=== PATIENT | female | born 1995 | race Caucasian/White ===

== ENCOUNTER 2020-08-06 00:05 | Emergency (ER) | payer SELFPAY ==
[2020-08-06 00:21] VITALS: BP 151/98; PULSE 78; RESP 22; TEMP 36.6; O2SAT 97
--- NOTE | 2020-08-06 01:07 | ED_ITS ---
HPI - Dental/Oral General: Chief complaint: Dental/Oral Stated complaint: Jaw pain Time Seen by Provider: 08/06/20 00:49 Source: patient Mode of arrival: ambulatory Limitations: no limitations History of Present Illness: HPI Narrative: 25-year-old female patient presents to the emergency department with dental pain. She recently moved here from [place], reports not established with a primary care provider. She reports dental pain to the right lower jaw, broken wisdom tooth x3 to 4 years on and off. [facility] has not followed up with a dental provider due to insurance reas ons. Reports past 1 to 2 weeks of increased dental pain, [facility] and normally works. [facility] has not helped pain tonight. MD Complaint: tooth pain and tooth injury Location: Tooth # (17) Onset (ago): week(s) (1-2; chronic for the past several years) Duration: constant Severity: moderate Severity scale (1-10): 6 Relieving factors: other (ASA) Exacerbating factors: chewing, cold and heat Context: history of dental caries and other ( broke off wisdom tooth ) Associated symptoms: Reports ear or mastoid pain; Denies fever(s) or odynophagia Review of Systems General: Reports: 10 or more systems reviewed and unremarkable except in HPI and below Const: Denies: fever(s), chills or diaphoresis Eyes: Denies: blurry vision or eye redness ENMT: Reports: dental pain and ear or mastoid pain; Denies: throat pain, uvular edema, odynophagia, hoarseness, swelling of li ps/tongue, ear discharge, nasal discharge, nasal congestion, nasal obstruction, epistaxis or post nasal drip Card: Denies: chest pain, palpitations or irregular heart rhythm Resp: Denies: dyspnea, productive cough, non-productive cough or wheezing GI: Denies: abdominal pain, nausea or vomiting : Denies: difficulty voiding or dysuria Musc: Denies: back pain Skin/Breast: Denies: rash or pruritus Neuro: Denies: headache(s), weakness in extremities or behavioral changes Psych: Denies: anxiety or depression [place]/Lymph: Denies: easy bruising Physical Exam 2 Const: COMMON NORMALS: no acute distress, patient oriented x3, healthy appearing, alert and well nourished EXAM LIMITATIONS: no altered mental status and no physical limitations GENERAL APPEARANCE: cooperative, comfortable, well kempt, well developed and well hydrated; not anxious, not combative and not ill appearing NUTRITIONAL APPEARANCE: thin ORIENTATION/CONSCIOUSNESS: Yes oriented to person, Yes oriented to place and Yes oriented to time HENMT: COMMON NORMALS: normocephalic, atraumatic, Normal external nose present and moist oral mucous membranes HEAD & SCALP: normocephalic and atraumatic FACE & SINUS: normal facial exam and face symmetric; no sinus tenderness NOSE: Normal external nose present and Normal nares present MOUTH: Normal oral and palatal mucosa present, lip normal and tongue normal TEETH & GINGIVA IMAGES: 1. old avulsion present, gum edema with erythema, tender with palpation THROAT: posterior oropharynx normal, tonsils normal and uvula midline; no uvular edema Eye: COMMON NORMALS: Equal, round and reactive pupils present and EOMs intact bilaterally GENERAL EYE: appearance normal, both eyes and all related structures PUPIL: Yes Equal, round and reactive pupils present Neck/C-Spine: COMMON NORMALS: full ROM and no lymphadenopathy GENERAL: Yes normal visual inspection and Yes trachea midline CERVICAL SPINE: Yes cervical ROM normal Lymph: LYMPHATIC: no lymphadenopathy noted Chest: COMMONS NORMALS: normal inspection of the chest Resp: COMMON NORMALS: normal respiratory effort and clear to auscultation bilaterally AUSCULTATION: clear to auscultation bilaterally Cardio: COMMON NORMALS: regular rhythm, S1 normal heart sound present and S2 normal heart sound present RHYTHM: regular rhythm HEART SOUNDS: S1 normal heart sound present and S2 normal heart sound present GI: COMMON NORMALS: Soft to palpation and non-tender INSPECTION: Yes normal to inspection PALPATION: Yes Soft to palpation : COMMON NORMALS: Yes no CVA tenderness BLADDER/KIDNEY EXAM: Yes no CVA tenderness Back/Pelvis: COMMON NORMALS: no CVA tenderness and thoracic and lumbar spine normal to inspection Extremity: COMMON NORMALS: normal to inspection and capillary refill normal Neuro: COMMON NORMALS: patient oriented x3 and no focal motor deficits SENSORIUM/ORIENTATION: Yes alert, Yes oriented to person, Yes oriented to place and Yes oriented to time Psych: COMMON NORMALS: mental status grossly normal, Normal thought process present and cooperative APPEARANCE: Yes well kempt ACTIVITY/MOTOR BEHAVIOR: Yes appropriate eye contact THOUGHT PROCESS: Normal thought process present Skin: COMMON NORMALS: no rashes or lesions noted and turgor normal GENERAL SKIN EXAM: no rashes or lesions noted and turgor normal Course Vital Signs: Vital signs: Vital Signs Temperature 97.9 F 08/06/20 00:21 Pulse Rate 78 08/06/20 00:21 Respiratory Rate 22 H 08/06/20 00:21 Blood Pressure 151/98 08/06/20 00:21 Pulse Oximetry 97 08/06/20 00:21 Discharge Plan Discharge Patient Disposition: Home Clinical Impression: Toothache, Dental caries Condition: Stable Prescriptions: New clindamycin HCl 300 mg capsule 300 mg PO QID 7 Days Qty: 28 RF: 0 ibuprofen 800 mg tablet 800 mg PO TID PRN (Reason: pain) Qty: 30 RF: 0 Lidocaine Viscous 2 % solution 1.2 ml topical Q3H PRN (Reason: pain) Qty: 15 RF: 0 Discharge Orders: Discharge ED (Routine); Ordered 08/06/20 Ordered By: Margaux Woodard Discharge Diet: GI Soft Discharge Activity: Resume usual activity Patient Instructions: Dental Caries (ED), Toothache (ED) Activity Restrictions/Additional Instructions: Follow-up with the dentist in 7 to 10 days without fail May apply dental wax, can purchase at any pharmacy, apply dental wax over the affected tooth to act as a makeshift, this will help protect the root against sensitivity Do not chew on the affected side, soft foods, avoid hard foods that can cause increased pain Return to the emergency department if you develop difficulty swallowing, swelli ng under the chin, drooling or difficulty breathing Warm salt water swish and spit several times daily Warm compresses alternate with cool compresses as needed for pain Sleep with head of your bed elevated to help reduce swelling and help with pain Coding Level of Care Code ED Customer Retention Specialist for [facility] Fwd Exam Comprehensive
[2020-08-06] MEDS: HYDROcodone-acetaminophen 5-325 mg Tablet 1 TAB PO (01:23)
[2020-08-06] MEDS: ibuprofen 600 mg Tablet PO (01:23)
== END 2020-08-06 01:28 | disposition home or self-care (01) ==
PROVIDERS: Emergency Provider Nurse Practitioner Family
DX: K02.9 Dental caries, unspecified (principal)
CPT/HCPCS: 12345; 99281; 99283

== ENCOUNTER 2020-08-06 09:21 | Emergency (ER) | payer SELFPAY ==
[2020-08-06 09:32] VITALS: BP 149/87; PULSE 84; RESP 18; TEMP 36.7; O2SAT 97
--- NOTE | 2020-08-06 09:41 | ED_ITS ---
Documented by User: TATI Vo 08/06/20 10:50 HPI - Dental/Oral General: Chief complaint: Dental/Oral Stated complaint: trouble eating/sleeping/pain/wisdom teeth related Time Seen by Provider: 08/06/20 09:40 History of Present Illness: Associated symptoms: Denies fever(s) or odynophagia Review of Systems Const: Denies: fever(s), chills or fatigue Eyes: Denies: change in vision or eye discomfort ENMT: Denies: throat pain, odynophagia, nasal discharge or nasal congestion Card: Denies: chest pain, palpitations, edema, swelling of feet/ankles, dyspnea on exertion or orthopnea Resp: Denies: dyspnea, productive cough or non-productive cough GI: Denies: abdominal pain, nausea, vomiting, diarrhea, constipation or hematochezia : Denies: flank pain, dysuria or hematuria Musc: Denies: neck pain, back pain or extremity swelling Skin/Breast: Denies: rash or new lesions Neuro: Denies: headache(s), numbness in extremities or weakness in extremities [facility] ED Female Reproductive History: Date of last menstrual period: 07/16/20 Physical Exam Const: COMMON NORMALS: patient oriented x3 HENMT: COMMON NORMALS: normocephalic HEAD & SCALP: normocephalic MOUTH: Normal oral and palatal mucosa present THROAT: posterior oropharynx normal and uvula midline Neck/C-Spine: COMMON NORMALS: supple GENERAL: Yes normal visual inspection Resp: COMMON NORMALS: normal respiratory effort, No retractions, No use of accessory muscles and clear to auscultation bilaterally AUSCULTATION: clear to auscultation bilaterally Cardio: COMMON NORMALS: regular rate, regular rhythm, S1 normal heart sound present, S2 normal heart sound present, No gallops present (Cardio), No clicks present (Cardio), No murmurs present (Cardio) and Peripheral pulses 2+ throughout RATE: regular rate RHYTHM: regular rhythm HEART SOUNDS: S1 normal heart sound present and S2 normal heart sound present PERIPHERAL PULSES: Peripheral pulses 2+ throughout GI: COMMON NORMALS: Normal to inspection, nondistended, normoactive bowel sounds present, Soft to palpation, non-tender and no masses PALPATION: Yes Soft to palpation : COMMON NORMALS: Yes no CVA tenderness BLADDER/KIDNEY EXAM: Yes no CVA tenderness Back/Pelvis: COMMON NORMALS: no CVA tenderness Neuro: COMMON NORMALS: patient oriented x3 and moves all extremities Course ED course: I started note on patient, but Dr. Tinoco went in and saw patient and took over care of patient. I then signed my note over to him and he managed care discharge of patient. I was not involved in patient's care. Vital Signs: Vital signs: Vital Signs Temperature 98.1 F 08/06/20 09:32 Pulse Rate 60 08/06/20 10:24 Respiratory Rate 18 08/06/20 10:24 Blood Pressure 166/99 08/06/20 10:24 Pulse Oximetry 97 08/06/20 10:24 MDM - Dental/Oral Lab Data: Labs: Lab Results 08/06/20 Range/Units 10:01 WBC 10.3 H (4.0-10.0) 10^3/ uL RBC 4.57 (4.1-5.3) 10^6/u L Hgb 13.8 (11.5-15.3) g/dL Hct 41.4 (37.0-47.0) % MCV 90.6 (81-99) fL MCH 30.2 (28.0-34.0) pg MCHC 33.3 (30.0-36.0) g/dL RDW 13.2 (12.1-15.1) % Plt Count 335 (130-400) 10^3/c mm MPV 9.7 (7.4-10.4) fL Neut % (Auto) 53.6 % Lymph % (Auto) 30.1 % [place] % (Auto) 6.2 % Eos % (Auto) 8.9 % Baso % (Auto) 0.9 % Neut # (Auto) 5.49 (1.8-7.7) 10^3/u L Lymph # (Auto) 3.1 (0.8-4.8) 10^3/u L [place] # (Auto) 0.6 (0.2-0.9) 10^3/u L Eos # (Auto) 0.9 H (0.0-0.8) 10^3/u L Baso # (Auto) 0.1 (0.0-0.1) 10^3/u L Nucleated RBC % (a uto) 0 % Nucleated RBCs # 0.0 /100WBC Discharge Plan Discharge Patient Disposition: Home Clinical Impression: Dental caries Condition: Stable Prescriptions: New hydrocodone-acetaminophen 5-325 mg tablet 1 tab PO Q6H PRN (Reason: pain) Qty: 10 RF: 0 No Action clindamycin HCl 300 mg capsule 300 mg PO QID 7 Days Qty: 28 RF: 0 ibuprofen 800 mg tablet 800 mg PO TID PRN (Reason: pain) Qty: 30 RF: 0 Lidocaine Viscous 2 % solution 1.2 ml topical Q3H PRN (Reason: pain) Qty: 15 RF: 0 Discharge Orders: Discharge ED (Routine); Ordered 08/06/20 Ordered By: Valente Tinoco Discharge Diet: GI Soft Discharge Activity: Increase activity as tolerated Activity Restrictions/Additional Instructions: Continue same instructions were given last night. Follow-up with a dentist as soon as you can make arrangements. You can apply dental wax to protect the underlying pulp to prevent sensitivity. Avoid chewing on the affected side avoid foods at extremes of temperature. Coding Level of Care Code ED Tank Carpenter for Chg Fwd Exam Comprehensive Documented by User: Valente Tinoco DO 08/06/20 12:07 HPI - Dental/Oral General: Chief complaint: Dental/Oral Stated complaint: trouble eating/sleeping/pain/wisdom teeth related Time Seen by Provider: 08/06/20 09:40 History of Present Illness: HPI Narrative: 25-year-old female presents emergency room complaining of tooth pain. Particularly on the left side. She has not had any fever sweats or chills. She does not have any drainage from the teeth she tried to go to several different dentist this morning and was not able to get in. MD Complaint: tooth pain Onset (ago): day(s) Duration: constant Severity: moderate Relieving factors: nothing Exacerbating factors: chewing Context: history of dental caries Associated symptoms: Reports ear or mastoid pain; Denies fever(s), gum swelling or odynophagia Treatment prior to arrival: topical analgesic and oral analgesic (Ibuprofen) Review of Systems Const: Denies: fever(s) ENMT: Reports: ear or mastoid pain; Denies: odynophagia Physical Exam Const: COMMON NORMALS: average body habitus, patient oriented x3 and alert GENERAL APPEARANCE: cooperative, comfortable, well kempt and well developed ORIENTATION/CONSCIOUSNESS: Yes awake, Yes oriented to person and Yes oriented to place HENMT: COMMON NORMALS: normocephalic, atraumatic, EAC's normal, TM's normal bilaterally, Normal external nose present, moist oral mucous membranes and oropharynx normal HEAD & SCALP: normocephalic and atraumatic NOSE: Normal external nose present EXTERNAL AUDITORY CANAL: EAC's normal TYMPANIC MEMBRANE: TM's normal bilaterally MOUTH: Normal oral and palatal mucosa present, lip normal and tongue normal TEETH & GINGIVA: Yes caries (Extensive caries of the wisdom teeth both upper and lower.) THROAT: posterior oropharynx normal and tonsils normal Neck/C-Spine: COMMON NORMALS: full ROM, no lymphadenopathy, supple, no meningeal signs and Thyroid normal THYROID: Thyroid normal and asymmetrical Lymph: LYMPHATIC: no lymphadenopathy noted Resp: COMMON NORMALS: normal respiratory effort, No retractions, No use of accessory muscles and clear to auscultation bilaterally AUSCULTATION: clear to auscultation bilaterally Cardio: COMMON NORMALS: regular rate and regular rhythm RATE: regular rate RHYTHM: regular rhythm HEART SOUNDS: no murmurs GI: COMMON NORMALS: Normal to inspection, nondistended, normoactive bowel sounds present, Soft to palpation and No hepatosplenomegaly present PALPATION: Yes Soft to palpation and Yes No hepatosplenomegaly present : COMMON NORMALS: Yes no CVA tenderness BLADDER/KIDNEY EXAM: Yes no CVA tenderness Back/Pelvis: COMMON NORMALS: no CVA tenderness LUMBAR SPINE/LOWER BACK: Yes normal to inspection Extremity: COMMON NORMALS: no clubbing, cyanosis or edema, no calf tenderness and no pedal edema Neuro: COMMON NORMALS: patient oriented x3 SENSORIUM/ORIENTATION: Yes alert, Yes oriented to person and Yes oriented to place MENINGEAL SIGNS: Yes no meningeal signs Psych: APPEARANCE: Yes well kempt Skin: COMMON NORMALS: no rashes or lesions noted and turgor normal GENERAL SKIN EXAM: no rashes or lesions noted and turgor normal Course Vital Signs: Vital signs: Vital Signs Temperature 98.1 F 08/06/20 09:32 Pulse Rate 60 08/06/20 10:24 Respiratory Rate 18 08/06/20 10:24 Blood Pressure 166/99 08/06/20 10:24 Pulse Oximetry 97 08/06/20 10:24 MDM - Dental/Oral Lab Data: Labs: Lab Results 08/06/20 Range/Units 10:01 WBC 10.3 H (4.0-10.0) 10^3/ uL RBC 4.57 (4.1-5.3) 10^6/u L Hgb 13.8 (11.5-15.3) g/dL Hct 41.4 (37.0-47.0) % MCV 90.6 (81-99) fL MCH 30.2 (28.0-34.0) pg MCHC 33.3 (30.0-36.0) g/dL RDW 13.2 (12.1-15.1) % Plt Count 335 (130-400) 10^3/c mm MPV 9.7 (7.4-10.4) fL Neut % (Auto) 53.6 % Lymph % (Auto) 30.1 % [place] % (Auto) 6.2 % Eos % (Auto) 8.9 % Baso % (Auto) 0.9 % Neut # (Auto) 5.49 (1.8-7.7) 10^3/u L Lymph # (Auto) 3.1 (0.8-4.8) 10^3/u L [place] # (Auto) 0.6 (0.2-0.9) 10^3/u L Eos # (Auto) 0.9 H (0.0-0.8) 10^3/u L Baso # (Auto) 0.1 (0.0-0.1) 10^3/u L Nucleated RBC % (a uto) 0 % Nucleated RBCs # 0.0 /100WBC Discharge Plan Discharge Patient Disposition: Home Clinical Impression: Dental caries Condition: Stable Prescriptions: New hydrocodone-acetaminophen 5-325 mg tablet 1 tab PO Q6H PRN (Reason: pain) Qty: 10 RF: 0 No Action clindamycin HCl 300 mg capsule 300 mg PO QID 7 Days Qty: 28 RF: 0 ibuprofen 800 mg tablet 800 mg PO TID PRN (Reason: pain) Qty: 30 RF: 0 Lidocaine Viscous 2 % solution 1.2 ml topical Q3H PRN (Reason: pain) Qty: 15 RF: 0 Discharge Orders: Discharge ED (Routine); Ordered 08/06/20 Ordered By: Valente Tinoco Discharge Diet: GI Soft Discharge Activity: Increase activity as tolerated Activity Restrictions/Additional Instructions: Continue same instructions were given last night. Follow-up with a dentist as soon as you can make arrangements. You can apply dental wax to protect the underlying pulp to prevent sensitivity. Avoid chewing on the affected side avoid foods at extremes of temperature. Coding Level of Care Code ED Tank Carpenter for [facility] Fwd Exam Comprehensive
--- NOTE | 2020-08-06 10:05 | PC.NURSE ---
Blood drawn via vaccutainer, labeled in presence of patient and taken to lab.
[2020-08-06] MEDS: ketorolac 60 mg/2 mL INJ IM (10:06)
[2020-08-06 10:10] LABS: Basophils # 0.1 10^3/uL (0.0-0.1); Basophils % 0.9 %; Eosinophils # 0.9 10^3/uL (0.0-0.8); Eosinophils % 8.9 %; Hematocrit 41.4 % (37.0-47.0); Hemoglobin 13.8 g/dL (11.5-15.3); Lymphocytes # 3.1 10^3/uL (0.8-4.8); Lymphocytes % 30.1 %; Mean Corpuscular HGB Conc 33.3 g/dL (30.0-36.0); Mean Corpuscular Hemoglobin 30.2 pg (28.0-34.0); Mean Corpuscular Volume 90.6 fL (81-99); Mean Platelet Volume 9.7 fL (7.4-10.4); Monocytes # 0.6 10^3/uL (0.2-0.9); Monocytes % 6.2 %; Neutrophils # 5.49 10^3/uL (1.8-7.7); Neutrophils % 53.6 %; Nucleated Red Blood Cells % 0 %; Platelet Count 335 10^3/cmm (130-400); Red Blood Count 4.57 10^6/uL (4.1-5.3); Red Cell Distribution Width 13.2 % (12.1-15.1); White Blood Count 10.3 10^3/uL (4.0-10.0)
[2020-08-06 10:24] VITALS: BP 166/99; PULSE 60; RESP 18; O2SAT 97
--- NOTE | 2020-08-08 09:04 | DCPLANNER ---
client experience manager had message to help patient be seen by a [facility]. client experience manager spoke with patient, gave patient the phone number to the [facility] in [place], patient stated that she would call.
== END 2020-08-06 10:27 | disposition home or self-care (01) ==
PROVIDERS: Emergency Provider Family Medicine
DX: K02.9 Dental caries, unspecified (principal)
CPT/HCPCS: 12345; 85025; 96372; 96375; 99281; 99283; J1885

== ENCOUNTER 2021-11-13 10:39 | Emergency (ER) | payer BC, SELFPAY ==
[2021-11-13 11:16] VITALS: BP 147/99; PULSE 113; RESP 16; TEMP 36.8; O2SAT 97; BMI 32.8
[2021-11-13 11:37] LABS: Basophils # 0.1 10^3/uL (0.0-0.1); Basophils % 0.4 %; Eosinophils # 0.3 10^3/uL (0.0-0.8); Eosinophils % 2.6 %; Lymphocytes # 2.4 10^3/uL (0.8-4.8); Lymphocytes % 20.4 %; Mean Corpuscular HGB Conc 34.1 g/dL (30.0-36.0); Mean Corpuscular Hemoglobin 30.8 pg (28.0-34.0); Mean Corpuscular Volume 90.1 fl (81-99); Monocytes # 0.7 10^3/uL (0.2-0.9); Monocytes % 5.9 %; Neutrophils # 8.26 10^3/uL (1.8-7.7); Neutrophils % 70.5 %; Nucleated Red Blood Cells % 0 %; Platelet Count 323 10^3/cmm (130-400); Red Blood Count 4.55 10^6/uL (4.1-5.3); Red Cell Distribution Width 12.9 % (12.1-15.1); White Blood Count 11.7 10^3/uL (4.0-10.0)
[2021-11-13 11:50] VITALS: BP 133/97; PULSE 93; RESP 16; O2SAT 99
[2021-11-13 11:55] LABS: HCG Quantitative 5.55 mIU/mL
[2021-11-13 12:06] LABS: Alanine Aminotransferase 15 U/L (0-33); Albumin Level 4.4 g/dL (3.5-5.2); Alkaline Phosphatase 55 IU/L (35-105); Anion Gap 13.7 (5-19); Aspartate Amino Transferase 17 U/L (0-32); Blood Urea Nitrogen 7 mg/dL (6-20); Calcium 9.2 mg/dL (8.5-10.5); Carbon Dioxide 24 mmol/L (22-29); Chloride 104 mmol/L (98-107); Globulin 2.1 g/dL (1.3-4.6); Glomerular Filtration Rate 100.4 mL/min (90-130); Glucose 101 mg/dL (65-115); Osmolality Calculated 284 mOsm/kg (285-295); Potassium 3.7 mmol/L (3.5-5.1); Sodium 138 mmol/L (136-145); Total Bilirubin 0.2 mg/dL (0.15-1.2); Total Protein 6.5 g/dL (6.6-8.7)
--- NOTE | 2021-11-13 12:07 | ED_ITS ---
HPI - Female Genitourinary General: Chief complaint: OB/Uterine Contractions Stated complaint: 5 weeks bleeding Time Seen by Provider: 11/13/21 11:50 Source: patient Mode of arrival: ambulatory Limitations: no limitations History of Present Illness: Patient is a 26-year-old female who presents to ED today with a complaint of being and having vaginal spotting. Patient states she began having spotting with wiping yesterday and states bleeding today is a little heavier stating she soaked a panty liner. Patient states she has had home positive tests over the past few days. She states her last normal menstrual cycle was at the end of August but states she did bleed for a couple of days at the end of September. Patient is estimating herself at roughly 5 weeks. She complains of some very mild pelvic cramping. Vaginal discharge, odor, or lesions. MD elicited complaint: vaginal bleeding Onset (ago): day(s) Severity: mild Quality of pain: cramping Vaginal discharge: none Vaginal bleeding: scant Exacerbating factors: none Relieving factors: none Associated symptoms: Reports nausea; Deny abdominal pain, headache(s) or vaginal discharge Treatment prior to arrival: none Possible : unsure if Date of Last Menstrual Period: 09/10/21 Review of Systems Const: Denies: fever(s), chills, body aches, fatigue or malaise Card: Denies: chest pain Resp: Denies: dyspnea GI: Reports: nausea; Denies: abdominal pain, vomiting or diarrhea : Reports: vaginal bleeding; Denies: flank pain, difficulty voiding, dysuria, urinary frequency, urinary urgency, vaginal odor or vaginal discharge Musc: Denies: back pain Skin/Breast: Denies: rash Neuro: Denies: headache(s) [facility] ED Female Reproductive History: Date of last menstrual period: 09/10/21 Physical Exam Const: COMMON NORMALS: no acute distress, patient oriented x3, no limitations and alert NUTRITIONAL APPEARANCE: overweight ORIENTATION/CONSCIOUSNESS: Yes awake, Yes oriented to person, Yes oriented to place and Yes oriented to time Resp: COMMON NORMALS: normal respiratory effort Cardio: COMMON NORMALS: regular rate and regular rhythm RATE: regular rate RHYTHM: regular rhythm GI: COMMON NORMALS: Normal to inspection, nondistended, normoactive bowel sounds present, Soft to palpation, non-tender, No hepatosplenomegaly present and no masses PALPATION: Yes Soft to palpation and Yes No hepatosplenomegaly present : COMMON NORMALS: Yes no CVA tenderness BLADDER/KIDNEY EXAM: Yes no CVA tenderness Back/Pelvis: COMMON NORMALS: no CVA tenderness Neuro: COMMON NORMALS: patient oriented x3 SENSORIUM/ORIENTATION: Yes alert, Yes oriented to person, Yes oriented to place and Yes oriented to time Course Vital Signs: Vital signs: Vital Signs Temperature 98.2 F 11/13/21 11:16 Pulse Rate 93 11/13/21 11:50 Respiratory Rate 16 11/13/21 11:50 Blood Pressure 133/97 11/13/21 11:50 Pulse Oximetry 99 11/13/21 11:50 MDM - Female Medical Decision Making hcg here today is 5.55. Normal range for non-menopausal female is 0-5. I highly suspect patient is having a normal menstrual cycle however we will go ahead and repeat hcg in 48 hours for confirmation. US would not be beneficial at this time. Strict return to ED precautions given. Recommend she contact OB provider for follow up next week. Lab Data : 11/13/21 11:32 11/13/21 11:32 Laboratory Results WBC 11.7 10^3/uL (4.0-10.0) H 11/13/21 11:32 RBC 4.55 10^6/uL (4.1-5.3) 11/13/21 11:32 Hgb 14.0 g/dL (11.5-15.3) 11/13/21 11: Hct 41.0 % (37.0-47.0) 11/13/21 11: MCV 90.1 fl (81-99) 11/13/21 11:32 MCH 30.8 pg (28.0-34.0) 11/13/21 11:32 MCHC 34.1 g/dL (30.0-36.0) 11/13/21 11:32 RDW 12.9 % (12.1-15.1) 11/13/21 11:32 Plt Count 323 10^3/cmm (130-400) 11/13/21 11:32 MPV 10.0 fL (7.4-10.4) 11/13/21 11:32 Neut % (Auto) 70.5 % 11/13/21 11:32 Lymph % (Auto) 20.4 % 11/13/21 11:32 [place] % (Auto) 5.9 % 11/13/21 11:32 Eos % (Auto) 2.6 % 11/13/21 11:32 Baso % (Auto) 0.4 % 11/13/21 11:32 Neut # (Auto) 8.26 10^3/uL (1.8-7.7) H 11/13/21 11:32 Lymph # (Auto) 2.4 10^3/uL (0.8-4.8) 11/13/21 11:32 [place] # (Auto) 0.7 10^3/uL (0.2-0.9) 11/13/21 11:32 Eos # (Auto) 0.3 10^3/uL (0.0-0.8) 11/13/21 11:32 Baso # (Auto) 0.1 10^3/uL (0.0-0.1) 11/13/21 11:32 Nucleated RBC % (auto) 0 % 11/13/21 11:32 Nucleated RBCs # 0.0 /100WBC 11/13/21 11:32 Sodium 138 mmol/L (136-145) 11/13/21 11:32 Potassium 3.7 mmol/L (3.5-5.1) 11/13/21 11:32 Chloride 104 mmol/L (98-107) 11/13/21 11:32 Carbon Dioxide 24 mmol/L (22-29) 11/13/21 11:32 Anion Gap 13.7 (5-19) 11/13/21 11:32 BUN 7 mg/dL (6-20) 11/13/21 11:32 Creatinine 0.7 mg/dL (0.5-0.9) 11/13/21 11:32 GFR Calculation 100.4 mL/min (90-130) 11/13/21 11:32 Glucose 101 mg/dL (65-115) 11/13/21 11:32 Calculated Osmolality 284 mOsm/kg (285-295) L 11/13/21 11:32 Calcium 9.2 mg/dL (8.5-10.5) 11/13/21 11:32 Total Bilirubin 0.2 mg/dL (0.15-1.2) 11/13/21 11:32 AST 17 U/L (0-32) 11/13/21 11:32 ALT 15 U/L (0-33) 11/13/21 11:32 Alkaline Phosphatase 55 IU/L (35-105) 11/13/21 11:32 Total Protein 6.5 g/dL (6.6-8.7) L 11/13/21 11:32 Albumin 4.4 g/dL (3.5-5.2) 11/13/21 11:32 Globulin 2.1 g/dL (1.3-4.6) 11/13/21 11:32 Ser , Semi-Qnt 5.55 mIU/mL 11/13/21 11:32 Urine Color Yellow (Yellow) 11/13/21 12:12 Urine Appearance Hazy (CLEAR) A 11/13/21 12:12 Urine pH 5 (5-7) 11/13/21 12:12 Ur Specific [place] 1.010 (1.005-1.030) 11/13/21 12:12 Urine Protein Neg (Negative) 11/13/21 12:12 Urine Glucose (UA) Norm (Normal) 11/13/21 12:12 Urine Ketones Negative (Negative) 11/13/21 12:12 Urine Blood 3+ (Negative) H 11/13/21 12:12 Urine Nitrate Negative (Negative) 11/13/21 12:12 Urine Bilirubin Neg (Negative) 11/13/21 12:12 Urine Urobilinogen Neg mg/dL (Negative) 11/13/21 12:12 Ur Leukocyte Esterase Trace (Negative) H 11/13/21 12:12 Urine RBC >100 /hpf (0-2) H 11/13/21 12:12 Urine WBC 5-10 /hpf (0-5) H 11/13/21 12:12 Ur Squamous Epith Cells 5-10 /hpf (0-5) H 11/13/21 12:12 Amorphous Sediment Not Reportable 11/13/21 12:12 Urine Bacteria Trace /hpf (NONE) 11/13/21 12:12 Discharge Plan Discharge Patient Disposition: Home Clinical Impression: Vaginal bleeding Condition: Stable Prescriptions: No Action No Known Home Medications 0RF Discharge Orders: Discharge ED (Routine); Ordered 11/13/21 Ordered By: Randa Reyes Activity Restrictions/Additional Instructions: You need to return to the emergency department for severe abdominal/pelvic pain, severe/heavy vaginal bleeding, soaking more than one pad an hour, or any other concerns you may have. Coding Level of Care Code ED Body Shop Technician for Chg Fwd Exam Detailed
[2021-11-13 12:34] LABS: Urine Appearance Hazy (CLEAR); Urine Color Yellow (Yellow)
[2021-11-13 12:35] LABS: Add Urine Culture? Yes; Add Urine Microscopic? YES; Bacteria Urine TRACE /hpf; Bilirubin Urine Neg (Negative); Blood Urine 3+ (Negative); Glucose Urine UA Norm (Normal); Ketones Urine Negative (Negative); Leukocyte Esterase Urine Trace (Negative); Nitrate Urine Negative (Negative); Protein Urine Neg (Negative); RBC Urine >100 /hpf (0-2); Urobilinogen Urine Neg (Negative); pH Urine 5 (5-7)
[2021-11-13 12:49] VITALS: BP 115/68; PULSE 84; RESP 16; O2SAT 95
[2021-11-13 12:50] VITALS: BP 109/74; PULSE 84; RESP 16; O2SAT 95
== END 2021-11-13 12:56 | disposition home or self-care (01) ==
PROVIDERS: Emergency Provider Physician Assistant
DX: N93.9 Abnormal uterine and vaginal bleeding, unspecified (principal)
CPT/HCPCS: 80053; 81001; 84702; 85025; 87086; 99283

== ENCOUNTER 2021-11-15 14:19 | Outpatient (CLI) | payer BC, SELFPAY ==
[2021-11-15 16:02] LABS: HCG Quantitative 1.62 mIU/mL
== END 2021-11-15 14:20 | disposition home or self-care (01) ==
LOC: LAB 14:21
PROVIDERS: Visit Provider Physician Assistant
DX: Z32.01 Encounter for pregnancy test, result positive (principal)
CPT/HCPCS: 84702

== ENCOUNTER 2021-12-10 02:24 | Emergency (ER) | payer BC, SELFPAY ==
[2021-12-10 02:29] VITALS: BMI 32.8
--- NOTE | 2021-12-10 02:38 | ED_ITS ---
HPI - Dental/Oral General: Chief complaint: Dental/Oral Stated complaint: swollen jaw Time Seen by Provider: 12/10/21 02:32 Source: patient Mode of arrival: ambulatory Limitations: no limitations History of Present Illness: Patient is a 26-year-old female who presents to ED today with complaint of right-sided facial swelling that she first began noticing yesterday. Patient states she does have a known history of bad teeth and feels symptoms could be related to this. Patient is not having any swelling down into her neck. She states she is able to eat and drink normally. She does not complain of any difficulty breathing or swallowing. She is not having any fevers or chills. MD Complaint: tooth pain Teeth map: 1. Onset (ago): day(s) Duration: constant Severity: moderate Relieving factors: nothing Exacerbating factors: nothing Associated symptoms: Denies ear or mastoid pain, fever(s) or odynophagia Treatment prior to arrival: other (ibuprofen, aspirin) Review of Systems Const: Denies: fever(s), chills, body aches, fatigue or malaise Eyes: Denies: change in vision ENMT: Reports: dental pain; Denies: throat pain, enlarged tonsils, odynophagia, hoarseness, swelling of lips/tongue, oral sores, ear or mastoid pain, nasal discharge or nasal congestion Card: Denies: chest pain Resp: Denies: dyspnea GI: Denies: abdominal pain Musc: Denies: neck pain Skin/Breast: Denies: rash Neuro: Denies: headache(s) [facility] ED Female Reproductive History: Date of last menstrual period: 09/10/21 Physical Exam Const: COMMON NORMALS: no acute distress, patient oriented x3, no limitations and alert HENMT: COMMON NORMALS: normocephalic, atraumatic and Normal external nose present HEAD & SCALP: normal to inspection, normocephalic and atraumatic FACE & SINUS: other (mild swelling along R mandible region) FACE & SINUS IMAGES: 1. mild amount of swelling; no abscess formation noted NOSE: Normal external nose present MOUTH: Normal oral and palatal mucosa present, lip normal, tongue normal and other (floor of mouth is soft/non-raised) TEETH & GINGIVA: Yes poor dentition (dental caries to R 2-3 molars; 3rd molar impaction) TEETH & GINGIVA IMAGES: 1. decay; no obvious abscess noted THROAT: posterior oropharynx normal, tonsils normal and uvula midline Eye: GENERAL EYE: appearance normal, both eyes and all related structures Neck/C-Spine: COMMON NORMALS: full ROM and no lymphadenopathy GENERAL: Yes normal visual inspection Neuro: COMMON NORMALS: patient oriented x3 SENSORIUM/ORIENTATION: Yes alert MDM - Dental/Oral Medical Decision Making Will place on oral abx and give small amount of pain meds. Recommend prompt dental follow up. Return to ED precautions given. Discharge Plan Discharge Patient Disposition: Home Clinical Impression: Dental infection Condition: Stable Prescriptions: New clindamycin HCl 300 mg capsule 300 mg PO Q6H 7 Days Qty: 28 0RF tramadol 50 mg tablet 50 mg PO Q6H PRN (Reason: pain) Qty: 10 0RF Discharge Orders: Discharge ED (Routine); Ordered 12/10/21 Ordered By: Randa Reyes Coding Level of Care Code ED Physician/Allergy/Immunology for Bradley Crystal
[2021-12-10] MEDS: TRAMadol 50 mg Tablet PO (02:58)
[2021-12-10] MEDS: clindamycin 150 mg/mL SDV 6 mL 600 MG IM (02:59)
[2021-12-10 03:07] VITALS: BP 116/79; PULSE 62; RESP 18; O2SAT 97
== END 2021-12-10 03:04 | disposition home or self-care (01) ==
PROVIDERS: Emergency Provider Physician Assistant
DX: K04.7 Periapical abscess without sinus (principal)
CPT/HCPCS: 96372; 99283; J3490

== ENCOUNTER 2022-07-24 10:23 | Emergency (ER) | payer BC, MEDICAID, SELFPAY ==
[2022-07-24 11:00] VITALS: BP 119/70; PULSE 77; RESP 15; TEMP 36.7; O2SAT 97; BMI 31.7
--- NOTE | 2022-07-24 12:10 | ED_ITS ---
Documented by User: Paola Reece PA-C 07/24/22 12:47 HPI - URI/Sore Throat General: Chief Complaint: Shortness of Breath/Dyspnea Stated Complaint: congestion,sob Time Seen by Provider: 07/24/22 12:05 Source: patient Mode of arrival: ambulatory Limitations: no limitations History of Present Illness: 27-year-old female presents to the ER today for a productive cough, runny nose, congestion, and painful breathing for the last 3 days. Patient reports that started with the congestion and runny nose and over the last 24 hours patient is developed a productive cough. Patient reports green and yellow sputum. She reports when she woke up this morning she felt like her chest was tight and was difficult to take a deep breath. Patient reports her OB told her she could take Robitussin so she has been taking that with minimal improvement. Patient denies any fever or chills at this time. Denies any recent close sick contacts that she is aware of. Patient reports she is 9 weeks at this time. Patient reports she usually gets a sinus infection and sometimes it turns into bronchitis. Review of Systems General: Reports: 10 or more systems reviewed and unremarkable except in HPI and below [facility] ED Female Reproductive History: Date of last menstrual period: 09/10/21 Physical Exam Const: COMMON NORMALS: no acute distress, average body habitus, patient oriented x3, no limitations, healthy appearing, alert and well nourished HENMT: COMMON NORMALS: atraumatic, external ears normal, TM's normal bilaterally, moist oral mucous membranes and oropharynx normal HEAD & SCALP: atraumatic EXTERNAL EAR: Yes external ears normal TYMPANIC MEMBRANE: TM's normal bilaterally OTHER: Mildly erythematous turbinates bilaterally Eye: COMMON NORMALS: Equal, round and reactive pupils present and conjunctivae normal CONJUNCTIVA: Yes conjunctivae normal PUPIL: Yes Equal, round and reactive pupils present Lymph: LYMPHATIC: no lymphadenopathy noted Resp: COMMON NORMALS: normal respiratory effort, No retractions and clear to auscultation bilaterally EFFORT & INSPECTION: Yes able to speak in complete sentences AUSCULTATION: clear to auscultation bilaterally, no crackles, no rales, no rhonchi and no wheezes Cardio: COMMON NORMALS: regular rate, regular rhythm and No murmurs present (Cardio) RATE: regular rate RHYTHM: regular rhythm GI: COMMON NORMALS: Normal to inspection, nondistended, normoactive bowel sounds present, Soft to palpation and non-tender PALPATION: Yes Soft to palpation Extremity: COMMON NORMALS: normal to inspection and full ROM Neuro: COMMON NORMALS: patient oriented x3 SENSORIUM/ORIENTATION: Yes alert Psych: COMMON NORMALS: mental status grossly normal, Normal thought process present and cooperative THOUGHT PROCESS: Normal thought process present Skin: COMMON NORMALS: no rashes or lesions noted and no wounds GENERAL SKIN EXAM: no rashes or lesions noted Course ED course: Patient presents for upper respiratory symptoms. She reports painful breathing. Patient is 9 weeks . On exam, patient has some erythematous turbinates bilaterally. Her lung sounds are clear. We will get influenza swab at this time. Given she is , I do not feel a chest x-ray is really warranted or needed. Patient's lung sounds are completely clear. Vital Signs: Vital signs: Vital Signs Temperature 98.1 F 07/24/22 11:00 Pulse Rate 77 07/24/22 11:00 Respiratory Rate 15 07/24/22 11:00 Blood Pressure 119/70 07/24/22 11:00 Pulse Oximetry 97 07/24/22 11:00 Oxygen Delivery Me thod 07/24/22 11:00 MDM - URI/Sore Throat Medical Decision Making Influenza negative. We also done a COVID swab however that will not change treatment. I would recommend Mucinex for chest congestion. Continue Robitussin as needed for cough per OB. Take Tylenol for pain. Patient was given a Ventolin inhaler to use for any shortness of breath. Would recommend follow-up with PCP or HVAC FIELD SERVICE TECHNICIAN in 4 to 7 days if no improvement in symptoms. Push fluids. Return to the ER with new or worsening symptoms. Pt verbalized understanding and was in agreement with the treatment plan. Lab Data Laboratory Results Influenza Type A Ag negative (Negative) 07/24/22 12:15 Influenza Type B Ag negative (Negative) 07/24/22 12:15 SARS-CoV-2 Ag (Rapid) negative (Negative) 07/24/22 12:25 Critical Care Time Critical Care Time: Critical Care Time: No Discharge Plan Discharge Patient Disposition: Home Clinical Impression: Viral URI with cough Condition: Stable Prescriptions: New Ventolin HFA 90 mcg/actuation HFA aerosol inhaler 2 inh inhalation Q4H PRN (Reason: shortness of breath or wheezing) Qty: 6.7 0RF No Action tramadol 50 mg tablet 50 mg PO Q6H PRN (Reason: pain) Qty: 10 0RF Discharge Orders: Discharge ED (Routine); Ordered 07/24/22 Ordered By: Paola Reece Discharge Diet: Usual diet Discharge Activity: Resume usual activity Patient Instructions: Opioid Safety, Pain Management Activity Restrictions/Additional Instructions: I would recommend taking Mucinex twice daily for nasal/chest congestion. Use Ventolin inhaler as needed for shortness of breath. Push fluids. May take Tylenol for pain or fevers. Follow-up with HVAC FIELD SERVICE TECHNICIAN or PCP in 4 to 5 days if no improvement. Return to the ER with new or worsening symptoms. Coding Level of Care Code ED Wire Machine Operator for Chg Fwd Exam Comprehensive Documented by User: Valente Tinoco DO 07/24/22 13:48 HPI - URI/Sore Throat General: Chief Complaint: Shortness of Breath/Dyspnea Stated Complaint: congestion,sob Time Seen by Provider: 07/24/22 12:05 Course Vital Signs: Vital signs: Vital Signs Temperature 98.1 F 07/24/22 11:00 Pulse Rate 77 07/24/22 11:00 Respiratory Rate 15 07/24/22 11:00 Blood Pressure 119/70 07/24/22 11:00 Pulse Oximetry 97 07/24/22 11:00 Oxygen Delivery Me thod 07/24/22 11:00 MDM - URI/Sore Throat Medical Decision Making Influenza negative. We also done a COVID swab however that will not change treatment. I would recommend Mucinex for chest congestion. Continue Robitussin as needed for cough per OB. Take Tylenol for pain. Patient was given a Ventolin inhaler to use for any shortness of breath. Would recommend follow-up with PCP or HVAC FIELD SERVICE TECHNICIAN in 4 to 7 days if no improvement in symptoms. Push fluids. Return to the ER with new or worsening symptoms. Pt verbalized understanding and was in agreement with the treatment plan. Chart reviewed and patient discussed with midlevel. Agree with assessment and plan. Lab Data Laboratory Results Influenza Type A Ag negative (Negative) 07/24/22 12:15 Influenza Type B Ag negative (Negative) 07/24/22 12:15 SARS-CoV-2 Ag (Rapid) negative (Negative) 07/24/22 12:25 Discharge Plan Discharge Patient Disposition: Home Clinical Impression: Viral URI with cough Condition: Stable Prescriptions: New Ventolin HFA 90 mcg/actuation HFA aerosol inhaler 2 inh inhalation Q4H PRN (Reason: shortness of breath or wheezing) Qty: 6.7 0RF No Action tramadol 50 mg tablet 50 mg PO Q6H PRN (Reason: pain) Qty: 10 0RF Discharge Orders: Discharge ED (Routine); Ordered 07/24/22 Ordered By: Paola Reece Discharge Diet: Usual diet Discharge Activity: Resume usual activity Patient Instructions: Opioid Safety, Pain Management Activity Restrictions/Additional Instructions: I would recommend taking Mucinex twice daily for nasal/chest congestion. Use Ventolin inhaler as needed for shortness of breath. Push fluids. May take Tylenol for pain or fevers. Follow-up with HVAC FIELD SERVICE TECHNICIAN or PCP in 4 to 5 days if no improvement. Return to the ER with new or worsening symptoms. Coding Level of Care Code ED Wire Machine Operator for Bradley Crystal Exam Comprehensive
[2022-07-24 12:36] LABS: Influenza A by IFA negative (Negative); Influenza B by IFA negative (Negative)
[2022-07-24 13:01] LABS: SARS Covid-2 Antigen negative (Negative)
== END 2022-07-24 12:50 | disposition home or self-care (01) ==
PROVIDERS: Emergency Provider Physician Assistant
DX: O99.511 Diseases of the respiratory system complicating pregnancy, first trimester (principal); J06.9 Acute upper respiratory infection, unspecified; Z3A.09 9 weeks gestation of pregnancy; Z20.822 Contact with and (suspected) exposure to COVID-19
CPT/HCPCS: 87426; 87804; 99283

== ENCOUNTER 2022-12-21 17:32 | Emergency (ER) | payer MEDICAID, SELFPAY ==
[2022-12-21 17:44] VITALS: BP 114/77; PULSE 83; RESP 16; TEMP 36.7; O2SAT 97; BMI 32.8
--- NOTE | 2022-12-21 17:53 | ED_ITS ---
HPI - URI/Sore Throat General: Chief Complaint: Upper Respiratory Infection Stated Complaint: Congestion, SOB, N/V Time Seen by Provider: 12/21/22 17:52 History of Present Illness: 27-year-old female comes in today with cough and congestion for over 1 week. Patient is a chronic smoker, 31 weeks , has a history of bronchitis. Patient denies history of asthma. Patient appears nontoxic. Patient does report some nausea and vomiting with illness. Patient reports coughing makes vomiting worse. Associated symptoms: Reports vomiting; Deny chest pain or fever(s) Review of Systems General: Reports: 10 or more systems reviewed and unremarkable except in HPI and below Const: Denies: fever(s) Card: Denies: chest pain Resp: Reports: productive cough GI: Reports: vomiting : Denies: difficulty voiding or vaginal bleeding Skin/Breast: Denies: rash Physical Exam Const: COMMON NORMALS: alert HENMT: COMMON NORMALS: normocephalic HEAD & SCALP: normocephalic THROAT: posterior oropharynx abnormal erythema Neck/C-Spine: COMMON NORMALS: full ROM Resp: COMMON NORMALS: normal respiratory effort AUSCULTATION: wheezes inspiratory wheezes Cardio: COMMON NORMALS: regular rate and regular rhythm RATE: regular rate RHYTHM: regular rhythm GI: AUSCULTATION: Yes normoactive bowel sounds Back/Pelvis: COMMON NORMALS: thoracic and lumbar spine normal to inspection Extremity: COMMON NORMALS: no pedal edema Neuro: SENSORIUM/ORIENTATION: Yes alert Skin: COMMON NORMALS: turgor normal GENERAL SKIN EXAM: turgor normal Course Vital Signs: Vital signs: Vital Signs Temperature 98.1 F 12/21/22 17:44 Pulse Rate 83 12/21/22 17:44 Respiratory Rate 16 12/21/22 17:44 Blood Pressure 114/77 12/21/22 17:44 Pulse Oximetry 97 12/21/22 17:44 Oxygen Delivery Me thod Room Air 12/21/22 17:44 MDM - URI/Sore Throat Medical Decision Making 27-year-old female comes in today for complaints of productive cough with chest discomfort for a little over 1 week. On exam patient has some mild inspiratory wheezes but good air movement throughout. Normal vital signs. Differential diagnosis includes but not limited to reactive airway disease, COPD, acute bronchitis, upper respiratory infection. Patient is approximately 31 weeks . Believe the patient probably has some bronchitis due to viral infection secondary to chronic cigarette smoking. Recommend smoking cessation. We will cover patient with azithromycin, albuterol inhaler, and promethazine syrup for cough and nausea. Patient reports understanding of care plan and need for follow-up or return to the ER. Discharge Plan Discharge Patient Disposition: Home Clinical Impression: Bronchitis Qualifiers: Weeks of gestation: 31 weeks Qualified Code(s): Z3A.31 - 31 weeks gestation of Condition: Stable Prescriptions: New azithromycin 250 mg tablet 250 mg PO DAILY 4 Days Qty: 4 0RF promethazine-DM 6.25-15 mg/5 mL syrup 5 ml PO Q6H PRN (Reason: cough) Qty: 118 0RF No Action Ventolin HFA 90 mcg/actuation HFA aerosol inhaler 2 inh inhalation Q4H PRN (Reason: shortness of breath or wheezing) Qty: 6.7 0RF tramadol 50 mg tablet 50 mg PO Q6H PRN (Reason: pain) Qty: 10 0RF Discharge Orders: Discharge ED (Routine); Ordered 12/21/22 Ordered By: Ralph Cobb Referrals: Baldemar Schuler MD [Primary Care Provider] - Discharge Diet: Usual diet Discharge Activity: Increase activity as tolerated Patient Instructions: Acute Bronchitis (ED) Activity Restrictions/Additional Instructions: Drink plenty of fluids. Take medications as directed. Use azithromycin for antibiotic. Use Promethazine DM 5 mL every 6 hours as needed for cough. Use albuterol 2 puffs every 4 hours as needed for shortness of breath or wheezing. Return to emergency department for new concerns or worsening symptoms. Follow- up with primary care as needed. Coding Level of Care Code ED Commercial Real Estate Sales Manager for Bradley Crystal
[2022-12-21] MEDS: azithromycin 250 mg Tablet 500 MG PO (18:26)
[2022-12-21] MEDS: promethazine-cod syrup 6.25-10mg/5 mL UDC PO (18:26)
[2022-12-21] MEDS: albuterol 8 gm MDI 2 PUFF INHALATION (18:31)
[2022-12-21 18:32] VITALS: PULSE 83; RESP 16; O2SAT 97
== END 2022-12-21 18:36 | disposition home or self-care (01) ==
PROVIDERS: Emergency Provider Nurse Practitioner Family; PCP Family Medicine
DX: O99.513 Diseases of the respiratory system complicating pregnancy, third trimester (principal); J40 Bronchitis, not specified as acute or chronic; Z3A.31 31 weeks gestation of pregnancy; O99.333 Smoking (tobacco) complicating pregnancy, third trimester; F17.210 Nicotine dependence, cigarettes, uncomplicated
CPT/HCPCS: 94640; 99283; J3535; Q0144

== ENCOUNTER 2023-02-01 10:37 | Outpatient (CLI) | payer MEDICAID, SELFPAY ==
[2023-02-01 10:43] VITALS: PULSE 78; O2SAT 96
[2023-02-01 10:47] VITALS: PULSE 71; O2SAT 94
[2023-02-01 10:48] VITALS: PULSE 75; O2SAT 94
[2023-02-01 10:51] VITALS: BP 123/72; PULSE 75; RESP 15
[2023-02-01 10:54] VITALS: BMI 33.5
[2023-02-01 11:04] LABS: Basophils # 0.1 10^3/uL (0.0-0.1); Basophils % 0.5 %; Eosinophils # 0.4 10^3/uL (0.0-0.8); Eosinophils % 3.4 %; Hematocrit 40.9 % (37.0-47.0); Hemoglobin 13.5 g/dL (11.5-15.3); Lymphocytes # 2.6 10^3/uL (0.8-4.8); Lymphocytes % 24.7 %; Mean Corpuscular Hemoglobin 31.4 pg (28.0-34.0); Mean Corpuscular Volume 95.1 fl (81-99); Monocytes # 0.6 10^3/uL (0.2-0.9); Monocytes % 5.9 %; Neutrophils # 6.87 10^3/uL (1.8-7.7); Neutrophils % 65.1 %; Nucleated Red Blood Cells % 0 %; Platelet Count 261 10^3/cmm (130-400); Red Cell Distribution Width 13.2 % (12.1-15.1); White Blood Count 10.6 10^3/uL (4.0-10.0)
[2023-02-01 11:13] LABS: Add Urine Culture? No; Add Urine Microscopic? YES; Bacteria Urine 1+ /hpf; Bilirubin Urine Neg (Negative); Blood Urine 2+ (Negative); Glucose Urine UA Norm (Normal); Ketones Urine Negative (Negative); Leukocyte Esterase Urine 2+ (Negative); Nitrate Urine Negative (Negative); Protein Urine Neg (Negative); RBC Urine 0-4 /hpf (0-2); Squamous Epithelial Cell Urine 15-25 /hpf (0-5); Urine Appearance Clear (CLEAR); Urine Color Yellow (Yellow); Urobilinogen Urine Norm (Negative); WBC Urine 0-4 /hpf (0-5); pH Urine 8 (5-7)
[2023-02-01 11:26] LABS: Urine Creatinine 150 mg/dL (28-217); Urine Protein Random 17 mg/dL
[2023-02-01 11:27] LABS: UPRO/UCREAT Ratio 0.11 mg/mg CR
[2023-02-01 11:30] VITALS: BP 124/81; PULSE 73
[2023-02-01 11:30] LABS: Alanine Aminotransferase 10 U/L (0-33); Albumin Level 3.6 g/dL (3.5-5.2); Alkaline Phosphatase 123 U/L (35-105); Anion Gap 18.3 (5-19); Aspartate Amino Transferase 19 U/L (0-32); Blood Urea Nitrogen 6 mg/dL (6-20); Calcium 8.6 mg/dL (8.5-10.5); Carbon Dioxide 19 mmol/L (22-29); Chloride 104 mmol/L (98-107); Globulin 2.7 g/dL (1.3-4.6); Glomerular Filtration Rate 146.9 mL/min (90-130); Glucose 92 mg/dL (65-115); Osmolality Calculated 281 mOsm/kg (285-295); Potassium 4.3 mmol/L (3.5-5.1); Sodium 137 mmol/L (136-145); Total Bilirubin 0.3 mg/dL (0.15-1.2); Total Protein 6.3 g/dL (6.6-8.7)
== END 2023-02-01 11:40 | disposition home or self-care (01) ==
LOC: OPOB 10:37 → OBGYN 11:34
PROVIDERS: PCP Family Medicine; Visit Provider Family Medicine
DX: O16.9 Unspecified maternal hypertension, unspecified trimester (principal); Z3A.00 Weeks of gestation of pregnancy not specified
CPT/HCPCS: 59025; 80053; 81001; 82570; 84156; 84550; 85025; 99211

== ENCOUNTER 2023-02-06 11:55 | Outpatient (CLI) | payer MEDICAID, SELFPAY ==
[2023-02-06 11:55] VITALS: BMI 32.9
[2023-02-06 12:09] VITALS: BP 140/90; PULSE 91
[2023-02-06 12:30] VITALS: BP 122/75; PULSE 65
[2023-02-06 12:36] LABS: Blood Urine Neg (Negative); Glucose Urine UA Norm (Normal); Ketones Urine Negative (Negative); Nitrate Urine Negative (Negative); Protein Urine Neg (Negative); Urine Appearance Hazy (CLEAR); Urine Color Yellow (Yellow); pH Urine 7 (5-7)
[2023-02-06 12:37] LABS: Bilirubin Urine Neg (Negative); Leukocyte Esterase Urine Trace (Negative); Urobilinogen Urine Norm (Negative)
[2023-02-06 12:46] LABS: Squamous Epithelial Cell Urine 40-55 /hpf (0-5)
[2023-02-06 12:47] LABS: Add Urine Culture? No; Bacteria Urine 2+ /hpf; Mucus Urine 2+ /hpf; WBC Urine 0-4 /hpf (0-5)
[2023-02-06 12:51] VITALS: BP 134/88; PULSE 70
[2023-02-06 12:58] LABS: Urine Creatinine 170 mg/dL (28-217)
[2023-02-06 13:01] LABS: UPRO/UCREAT Ratio 0.12 mg/mg CR; Urine Protein Random 21 mg/dL
[2023-02-06 13:09] VITALS: BP 127/85; PULSE 64
[2023-02-06 13:10] VITALS: BP 115/81; PULSE 59
[2023-02-06 13:27] VITALS: BP 115/81; PULSE 59; RESP 18; TEMP 36.6
--- NOTE | 2023-02-06 13:28 | PC.NURSE ---
PT CAME IN WITH C/O OF SWELLING, DR CAMPBELL AWARE OF THIS WHEN SHE SAW HIM WEDNESDAY. PATIENT STATES NOT ANY WORSE BUT JUST HASN'T GONE DOWN. SWELLING IN ALL IN AND AROUND HER ANKLES, NONE ANYWHERE ELSE. SHE STATES THAT SHE HAS HAD THEME ELEVATED BUT NOTHING HAS HELP. UPON DISCHARGE THIS DOUBLE REAMER OPERATOR GAVE HER HER INSTRUCTIONS AND SHE SAID THAT SHE HAD TO WORK [employer] [facility] [employer] OFFERED TO DOUBLE REAMER OPERATOR HER A NOTE TO BE OFF AND SHE SAID THAT SHE WANTS TO WORK AND THEN SHE HAS 3 DAYS OFF. AGAIN ENCOURAGED HER TO REST AND PUT HER FEET UP AND DRINK LOTS OF WATER MUCH POSSIBLE.
== END 2023-02-06 13:30 | disposition home or self-care (01) ==
LOC: OPOB 11:59 → OBGYN 12:00
PROVIDERS: PCP Family Medicine; Visit Provider Family Medicine
DX: O26.893 Other specified pregnancy related conditions, third trimester (principal); Z3A.37 37 weeks gestation of pregnancy; M79.89 Other specified soft tissue disorders
CPT/HCPCS: 59025; 81001; 82570; 84156; 99211

== ENCOUNTER 2023-02-17 22:39 | Outpatient (CLI) | payer MEDICAID, SELFPAY ==
[2023-02-17 23:04] VITALS: BP 133/85; PULSE 99
[2023-02-17 23:16] VITALS: TEMP 36.5
[2023-02-17 23:17] VITALS: RESP 16
[2023-02-17 23:19] VITALS: BMI 32.9
[2023-02-17 23:25] LABS: Nitrazine Paper, PH Inconclusive
[2023-02-17 23:30] LABS: Actim Prom Negative
[2023-02-17 23:35] VITALS: BP 120/81; PULSE 85
[2023-02-18 00:06] VITALS: BP 132/82; PULSE 89
[2023-02-18 00:35] VITALS: BP 125/80; PULSE 67
[2023-02-18 01:05] VITALS: BP 123/81; PULSE 65
[2023-02-18 01:48] LABS: Nitrazine Paper, PH Negative
== END 2023-02-18 01:29 | disposition home or self-care (01) ==
LOC: OPOB 22:46 → OBGYN 22:48
PROVIDERS: PCP Family Medicine; Visit Provider Family Medicine
DX: O26.899 Other specified pregnancy related conditions, unspecified trimester (principal); N89.8 Other specified noninflammatory disorders of vagina; Z3A.00 Weeks of gestation of pregnancy not specified
CPT/HCPCS: 59025; 83986; 84112; 99211

== ENCOUNTER 2023-02-24 06:40 | Inpatient (IN) | payer MEDICAID, SELFPAY ==
[2023-02-24] VITALS (54 sets, daily range): BP systolic 106–156; BP diastolic 64–92; PULSE 44–75; RESP 15–18; TEMP 35.9–36.8; O2SAT 97–98; BMI 32.9
[2023-02-24 05:49] LABS: Nitrazine Paper, PH Negative
[2023-02-24 05:56] LABS: Actim Prom Positive
[2023-02-24 06:01] LABS: Amphetamines Screen Urine Negative (Negative); Barbiturates Screen Urine Negative (Negative); Benzodiazepines Screen Urine Negative (Negative); Cocaine Screen Urine Negative (Negative); Opiate Screen Urine Negative (Negative); PCP Screen Urine Negative (Negative); THC Screen Urine Positive (Negative)
[2023-02-24 06:41] LABS: Basophils # 0.1 10^3/uL (0.0-0.1); Basophils % 0.5 %; Eosinophils # 0.3 10^3/uL (0.0-0.8); Eosinophils % 2.5 %; Hematocrit 39.5 % (37.0-47.0); Hemoglobin 14.2 g/dL (11.5-15.3); Lymphocytes # 2.7 10^3/uL (0.8-4.8); Lymphocytes % 22.8 %; Mean Corpuscular HGB Conc 35.9 g/dL (30.0-36.0); Mean Corpuscular Hemoglobin 32.3 pg (28.0-34.0); Mean Corpuscular Volume 89.8 fl (81-99); Mean Platelet Volume 10.9 fL (7.4-10.4); Monocytes # 0.7 10^3/uL (0.2-0.9); Monocytes % 5.5 %; Neutrophils # 8.07 10^3/uL (1.8-7.7); Neutrophils % 68.4 %; Nucleated Red Blood Cells % 0 %; Platelet Count 219 10^3/cmm (130-400); Red Cell Distribution Width 12.9 % (12.1-15.1); White Blood Count 11.8 10^3/uL (4.0-10.0)
--- NOTE | 2023-02-24 07:48 | P.HP_ITS ---
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 Patient states that she has been having contractions every 3 to 7 minutes prior to arrival. Patient was scheduled for an induction today. Patient's care was unremarkable. Patient's had a child with GBS sepsis previously. labs otherwise were unremarkable. Patient's had no complications during this . Present Details : 5 Para: 3 Labs Rubella: Unknown RPR: Negative GBS: Positive Review of Systems General: Reports: 10 or more systems reviewed and unremarkable except in HPI and below Const: Denies: fever(s) Card: Denies: chest pain : Denies: difficulty voiding or vaginal bleeding Skin/Breast: Denies: rash Medications/Allergies Allergies Allergy/AdvReac Type Severity Reaction Status Date / Time No Known Allergies Allergy Verified 11/13/21 12:17 History History History 5 Term 3 Miscarriages/Ectopic 1 Living Children 3 Vitals/I&O/Wt Last Vital Signs Temp 97.3 F L 02/24/23 06:47 Pulse 57 L 02/24/23 06:40 Resp 15 02/24/23 06:06 BP 127/87 02/24/23 06:40 O2 Del Method Room Air 02/24/23 06:00 Weight last 48 hrs Weight 87.09 kg Weight 87.09 kg Physical Exam Const: COMMON NORMALS: no acute distress and alert HENMT: COMMON NORMALS: normocephalic and moist oral mucous membranes Resp: COMMON NORMALS: normal respiratory effort and No retractions Cardio: COMMON NORMALS: no JVD, regular rate and regular rhythm GI: OTHER: Gravid Extremity: COMMON NORMALS: no clubbing, cyanosis or edema Neuro: COMMON NORMALS: moves all extremities, no focal motor deficits and no sensory deficits noted Psych: COMMON NORMALS: mental status grossly normal and normal affect Skin: COMMON NORMALS: no rashes or lesions noted Data 02/24/23 06:30 A&P Assessment and plan (1) Term , repeat: Continue routine labor management. (2) Premature rupture of membranes (PROM) affecting fifth : Patient's initial check was 2 cm and an hour later it was unchanged. She is con tracting every 3 to 7 minutes, so we will augment her labor with Pitocin. Attestations Medical Necessity Statement*: Patient is admitted for rupture membranes and labor. Anticipate at least 1 midnight stay. Coding Level of Care Code Acute Code for Chg Fwd Diagnoses Term , repeat Z34.90 Premature rupture of membranes (PROM) affecting fifth O42.90; O09.40
[2023-02-24] MEDS: dextrose 5%-lactated ringers 1,000 ML 125 ML IV (08:14)
[2023-02-24] MEDS: ampicillin 2,000 MG in sodium chloride 0.9% (plus) 50 ML 100 MG IV (08:14)
--- NOTE | 2023-02-24 10:30 | ANES.PREANE2 ---
Pre-Anesthetic Assessment Height/Weight: Height 1.63 m Weight 87.09 kg Temp Pulse Resp BP Pulse Ox O2 Del Method 96.6 F L 57 L 15 119/78 97 Room Air 02/24/23 09:07 02/24/23 11:32 02/24/23 06:06 02/24/23 11:32 02/24/23 10:53 02/24/23 07:13 epidural Familial anesthetic complications: None Last intake: > 8hrs Social No alcohol and No tobacco Exam alert, oriented x 3, clear to auscultation bilaterally and regular rate & rhythm Airway Mallampati: Class II Dentition: full Anesthetic Plan ASA status: 2 Anesthesia: Regional (specify below) Risk of > 500 ml blood loss (7ml/kg in children): Yes, adequate IV access and fluids planned Medications/Allergies Allergies Allergy/AdvReac Type Severity Reaction Status Date / Time No Known Allergies Allergy Verified 11/13/21 12:17 Current Medications Generic Name Dose Route Start Last Admin Trade Name Freq PRN Reason Stop Dose Admin Dextrose/Lactated Ringer's 1,000 mls @ 125 mls/hr 02/24/23 06:15 02/24/23 08:14 Dextrose 5%-Lactated Ringers IV 125 mls/hr .Q8H JEFFREY Administration Oxytocin 30 unit/ Sodium 503 mls @ 1 mls/hr 02/24/23 08:15 02/24/23 09:02 Chloride IV 1 mls/hr .Q24H JEFFREY 1 mls/hr Administration Protocol [facility] Anesthesia Female Reproductive History : 5 Data Anesthesia 02/24/23 06:30 Short CBC 02/24/23 Range/Units 06:30 WBC 11.8 H (4.0-10.0) 10^3/uL Hgb 14.2 (11.5-15.3) g/dL Hct 39.5 (37.0-47.0) % MCV 89.8 (81-99) fl Plt Count 219 (130-400) 10^3/cmm Neut % (Auto) 68.4 % Neut # (Auto) 8.07 H (1.8-7.7) 10^3/uL Cardiac Studies: No Data to Display Anesthesia Procedures Epidural Time Out Performed: Yes Consents Signed: Procedure Consent Consent: requested by attending/covering physician, from patient, from other, risks and benefits reviewed and patient agrees to proceed Lumbar Level: L3-L4 Epidural position: sitting Epidural procedure: sterile prep of area, 1% lidocaine to numb the area, 18 g needle, negative for paresthesia passed, neg for paresthesia, test dose given, 1.5% xylocaine 1:200k epi (5 cc), 0.2% Ropivacaine bolus ml (5), placed PCEA, no systemic response, sterile dressing applied, L.U.D. no apparent complications and 0.2% Ropiavacaine @ mls/hr (13) Additional Comments: TESSA at 5 cm, threaded to 11 cm
[2023-02-24] MEDS: ampicillin 1,000 MG in sodium chloride 0.9% (plus) 50 ML 100 MG IV (11:45)
[2023-02-24] MEDS: miSOPROStol 200 mcg Tablet 800 MCG PR (16:16)
--- NOTE | 2023-02-24 16:45 | P.PCNOB_ITS ---
Delivery Note: Date of delivery: February 24, 2023 Pre-delivery diagnoses: Term intrauterine Post-delivery diagnoses: Same, viable male Procedure: Spontaneous vaginal delivery Delivering Physician: Hector Schuler MD Estimated blood loss (mL): 300 Pre-Delivery Course: This is a 27-year-old G5, P4 that presented at 40 weeks 1 day with premature rupture membranes. Patient initially was ramiro every 3 to 7 minutes but no cervical change was noted so labor was augmented with Pitocin. Patient's contractions became more intense and she received a epidural. The patient then continued to dilate till completion. Delivery: Once patient was found to be completely dilated patient placed into normal lithotomy position. Patient then pushed with the next contraction and delivered the 's head without difficulty. Nuchal cord x3 was noted. No cord was attempted to be reduced but unable to reduce it so was delivered through nuchal cord. Meconium stained fluid was noted. Once infant was delivered nuchal cord was then reduced and was placed onto maternal belly. After appropriate delay the cord was then clamped and cut. Placenta was then delivered without incident. Review of the perineum showed an intact perineum however showed a first-degree right labial tear that required repair. Using 2-0 chromic, the laceration of the right labia was repaired in a running suture. After repair significant clots and bleeding was still noted so 100 mg of Cytotec was given rectally. Uterus was firm to palpation and bleeding was better contro lled. Post-Delivery Status: Stable History History History 5 Term 3 Miscarriages/Ectopic 1 Living Children 4 A&P Assessment and plan (1) Vaginal delivery: Proceed with routine care. Coding Level of Care Code Acute Code for Chg Fwd Diagnoses Vaginal delivery O80
[2023-02-24] MEDS: ibuprofen 800 mg tablet PO (23:07)
[2023-02-25 04:01] LABS: Hematocrit 34.5 % (37.0-47.0); Hemoglobin 11.9 g/dL (11.5-15.3); Mean Corpuscular HGB Conc 34.5 g/dL (30.0-36.0); Mean Corpuscular Hemoglobin 31.7 pg (28.0-34.0); Mean Platelet Volume 11.1 fL (7.4-10.4); Platelet Count 191 10^3/cmm (130-400); Red Blood Count 3.75 10^6/uL (4.1-5.3); Red Cell Distribution Width 12.9 % (12.1-15.1); White Blood Count 12.1 10^3/uL (4.0-10.0)
--- NOTE | 2023-02-25 08:26 | P.PN_ITS ---
NURSING HOME AIDE Subjective Subjective: Interval history: Is a 27-year-old G5, P4 that is post vaginal delivery day 1. Patient has no complications today. Vital signs are stable. Patient has no new concerns. Pain is well controlled and lochia is appropriate. Labor: Station: +3 Amniotic Membrane Status: Leaking Monitor Mode: External Contraction Pattern: Regular Vitals/I&O/Wt Last Vital Signs Temp 97.8 F 02/24/23 20:50 Pulse 60 02/24/23 20:50 Resp 16 02/24/23 20:50 BP 130/81 02/24/23 20:50 Pulse Ox 98 02/24/23 20:50 O2 Del Method Room Air 02/24/23 20:50 02/24/23 02/25/23 02/25/23 22:59 06:59 14:59 Intake Total 1000 / 1100 Balance 1000 / 1100 Weight last 48 hrs Weight 87.09 kg Weight 87.09 kg Physical Exam Const: COMMON NORMALS: no acute distress and alert HENMT: COMMON NORMALS: normocephalic and moist oral mucous membranes HEAD & SCALP: normocephalic Neck/C-Spine: COMMON NORMALS: no JVD Resp: COMMON NORMALS: normal respiratory effort and No retractions Cardio: COMMON NORMALS: no JVD, regular rate and regular rhythm RATE: regular rate RHYTHM: regular rhythm GI: COMMON NORMALS: Normal to inspection, nondistended, normoactive bowel sounds present Extremity: COMMON NORMALS: no clubbing, cyanosis or edema Neuro: COMMON NORMALS: moves all extremities, no focal motor deficits and no sensory deficits noted SENSORIUM/ORIENTATION: Yes alert Psych: COMMON NORMALS: mental status grossly normal and normal affect Skin: COMMON NORMALS: no rashes or lesions noted GENERAL SKIN EXAM: no rashes or lesions noted Urinary Catheter Management: Mary: Cath Placed During This Visit: yes Urinary Catheter Date of Insertion: 02/24/23 Urinary Catheter Time of Insertion: 11:40 Data 02/25/23 03:50 A&P Assessment and plan (1) Vaginal delivery: Continue routine care (2) tubal ligation planned: Plan for tubal tomorrow. Attestations Medical Necessity Statement*: Anticipate discharge tomorrow Coding Level of Care Code Acute Code for Chg Fwd Diagnoses Vaginal delivery O80 tubal ligation planned
[2023-02-25] MEDS: prenatal vitamin Capsule 1 CAP PO (09:52)
[2023-02-25] MEDS: ibuprofen 800 mg tablet PO ×3 (09:52→20:43)
--- NOTE | 2023-02-25 13:41 | PC.NURSE ---
1335 PATIENT CARE TURNED OVER TO MARTHA LONG RN AT THIS TIME.
[2023-02-25 20:59] VITALS: RESP 15
[2023-02-25 22:25] VITALS: BP 120/74; PULSE 54; RESP 15; O2SAT 97
[2023-02-26] VITALS (9 sets, daily range): BP systolic 90–132; BP diastolic 50–79; PULSE 53–72; RESP 14–15; TEMP 36.6–36.8; O2SAT 93–99
[2023-02-26] MEDS: HYDROcodone-acetaminophen 5-325 mg Tablet PO (06:17)
--- NOTE | 2023-02-26 07:18 | P.DS_ITS ---
Discharge Providers CUSTOMER QUALITY SPECIALIST Date of Admission: 02/24/23 06:40 Date of Discharge: 02/26/23 Attending Provider at Admission: Baldemar Schuler MD Attending Provider at Discharge: Baldemar Schuler MD Primary Care Provider: Baldemar Schuler MD Diagnoses at Discharge Discharge Diagnosis (1) Vaginal delivery: Status: Acute (2) tubal ligation planned: Status: Acute Reason for Visit Reason for Visit: Abdominal pain Hospital Course Hospital Course This is a 27-year-old G5, P4 that presented with premature rupture of membranes. Initially the patient did not change as expected so labor was augmented. Eventually the patient did progressed to complete dilation and delivered a viable male without difficulties. There were no concerns. care was unremarkable. Patient underwent tubal on February 26 without complication. Information Peripartum Data: Delivery Method: Vaginal Laceration description: Labial complications: none Physical Exam Const: COMMON NORMALS: no acute distress and alert HENMT: COMMON NORMALS: normocephalic and moist oral mucous membranes HEAD & SCALP: normocephalic Neck/C-Spine: COMMON NORMALS: no JVD Resp: COMMON NORMALS: normal respiratory effort and No retractions Cardio: COMMON NORMALS: no JVD, regular rate and regular rhythm RATE: regular rate RHYTHM: regular rhythm GI: COMMON NORMALS: Normal to inspection, nondistended, normoactive bowel sounds present Extremity: COMMON NORMALS: no clubbing, cyanosis or edema Neuro: COMMON NORMALS: moves all extremities, no focal motor deficits and no sensory deficits noted SENSORIUM/ORIENTATION: Yes alert Psych: COMMON NORMALS: mental status grossly normal and normal affect Skin: COMMON NORMALS: no rashes or lesions noted GENERAL SKIN EXAM: no rashes or lesions noted Urinary Catheter Management: Mary: Cath Placed During This Visit: yes Urinary Catheter Date of Insertion: 02/24/23 Urinary Catheter Time of Insertion: 11:40 History History History 5 Term 3 Miscarriages/Ectopic 1 Living Children 4 Discharge Data Studies Completed and Pending Laboratory Results WBC 12.1 10^3/uL (4.0-10.0) H 02/25/23 03:50 RBC 3.75 10^6/uL (4.1-5.3) L 02/25/23 03:50 Hgb 11.9 g/dL (11.5-15.3) 02/25/23 03:50 Hct 34.5 % (37.0-47.0) L 02/25/23 03:50 MCV 92.0 fl (81-99) 02/25/23 03:50 MCH 31.7 pg (28.0-34.0) 02/25/23 03:50 MCHC 34.5 g/dL (30.0-36.0) 02/25/23 03:50 RDW 12.9 % (12.1-15.1) 02/25/23 03:50 Plt Count 191 10^3/cmm (130-400) 02/25/23 03:50 MPV 11.1 fL (7.4-10.4) H 02/25/23 03:50 Neut % (Auto) 68.4 % 02/24/23 06:30 Lymph % (Auto) 22.8 % 02/24/23 06:30 Willacy % (Auto) 5.5 % 02/24/23 06:30 Eos % (Auto) 2.5 % 02/24/23 06:30 Baso % (Auto) 0.5 % 02/24/23 06:30 Neut # (Auto) 8.07 10^3/uL (1.8-7.7) H 02/24/23 06:30 Lymph # (Auto) 2.7 10^3/uL (0.8-4.8) 02/24/23 06:30 Willacy # (Auto) 0.7 10^3/uL (0.2-0.9) 02/24/23 06:30 Eos # (Auto) 0.3 10^3/uL (0.0-0.8) 02/24/23 06:30 Baso # (Auto) 0.1 10^3/uL (0.0-0.1) 02/24/23 06:30 Nucleated RBC % (auto) 0 % 02/24/23 06:30 Nucleated RBCs # 0.0 /100WBC 02/24/23 06:30 Insulin-like GF I Positive 02/24/23 05:45 Urine Opiates Screen Negative ng/mL (Negative) 02/24/23 05:45 Ur Barbiturates Screen Negative ng/mL (Negative) 02/24/23 05:45 Ur Phencyclidine Scrn Negative ng/mL (Negative) 02/24/23 05:45 Ur Amphetamines Screen Negative ng/mL (Negative) 02/24/23 05:45 U Benzodiazepines Scrn Negative ng/mL (Negative) 02/24/23 05:45 Urine Cocaine Screen Negative ng/mL (Negative) 02/24/23 05:45 U Marijuana (THC) Screen Positive ng/mL (Negative) H 02/24/23 05:45 Procedures Performed tubal ligation Vitals Last Vital Signs Temp 98.2 F 02/26/23 05:23 Pulse 54 L 02/26/23 05:23 Resp 15 02/26/23 05:23 BP 132/79 02/26/23 05:23 Pulse Ox 97 02/26/23 05:23 O2 Del Method Room Air 02/26/23 05:23 Discharge Plan Discharge Patient Disposition: Home Condition: Stable Prescriptions: New ibuprofen 800 mg Tablet 800 mg PO TID PRN (Reason: Abdominal Discomfort) Qty: 30 0RF hydrocodone-acetaminophen 5-325 mg Tablet 1 - 2 tab PO Q6H PRN (Reason: Moderate To Severe Pain) Qty: 10 0RF Discharge Orders: Discharge Order (Routine); Ordered 02/26/23 Ordered By: Tonie Mckeon Referrals: Tonie Mckeon MD [Physician] - ([facility] will call you on Wednesday to give you the date & time for your appointment next week.) Baldemar Schuler MD [Primary Care Provider] - 03/26/23 8:15 am (Your [address] Schuler is WednesdayMarch 26 @8:15am. ) Discharge Diet: Usual diet Discharge Activity: Limit activity as instructed Patient Instructions: Depression (DC), Preeclampsia and Eclampsia After Delivery (GEN), Hemorrhage (DC), OB Discharge Report, OB Food/Drug Interaction Guide, OB Care at Home, Opioid Safety Activity Restrictions/Additional Instructions: Remove pressure bandage tonight or tomorrow. Leave steri-strips in place. Keep incision clean and dry. Discharge Attestations CUSTOMER QUALITY SPECIALIST Time Spent in Discharge Care*: less than 30 min Coding Level of Care Code Acute Code for Chg Fwd Diagnoses Vaginal delivery O80 tubal ligation planned
[2023-02-26] MEDS: famotidine 20 mg/2 mL INJ IVP ×2 (07:35→07:44)
[2023-02-26] MEDS: citric acid-sodium citrate 30 mL UDC PO ×2 (07:35→07:44)
[2023-02-26] MEDS: metoclopramide 5 mg/mL SDV 2 mL 10 MG IVP ×2 (07:35→07:44)
[2023-02-26] MEDS: ceFAZolin 2,000 MG in sodium chloride 0.9% (plus) 50 ML 100 MG IV (07:45)
[2023-02-26] MEDS: lactated ringers 1,000 ML 999 ML IV (07:45)
--- NOTE | 2023-02-26 08:53 | P.OP_ITS ---
Operative Report Date of procedure: February 26, 2023 Pre-op diagnosis: Desired permanent surgical sterilization Procedure done: bilateral tubal ligation Specimens removed/disposition: Segments of right and left fallopian tubes Pathology: Segments of right and left fallopian tubes Surgeon: Tonie Mckeon MD Estimated blood loss (mL): 2 IV fluids (mL): 800 Urine output: Patient urinated prior to procedure Complications: None Brief History: On the evening of 02/25/2023 I visited with the patient regarding her request for bilateral tubal ligation. I reviewed risk benefits and alternatives of the surgery. Patient wished to proceed. Procedure: After informed consent, the patient was taken to the OR where spinal anesthesia was administered. She was prepped and draped in normal sterile fashion in dorsal supine position. After adequate spinal anesthesia was verified a curvilinear skin incision was made under the umbilicus. The incision was carried through bluntly to the fascia. The fascia was grasped with Allis clamps and entered sharply using the Mayos. The peritoneum was very stretchy and it was grasped with a Allis clamp and entered sharply using the Metzenbaums. The left fallopian tube was then identified and grasped with a Esperanza. The tube was brought into the operative field and fimbria were identified. A distal portion of the tube was ligated using 0 chromic. A portion of the tube was excised and sent to pathology. Tubal ostia were visualized. The cut portions of the tube were coagulated using the Bovie. The cut portions of the tube were then returned to the abdomen. The right fallopian tube was then identified and grasped with a Clarendon. It was brought into the operative field. A midportion of the tube was ligated and excised. Segment of the tube was sent to pathology. Tubal ostia were identified. Cut portions of the tube were coagulated using the Bovie. Cut portions of the tube were returned to the abdomen. The peritoneum and fascia was then reapproximated using 0 Vicryl in a running fashion. The skin was then reapproximated using 4-0 Vicryl in a running fashion. 10 mL of benzocaine was injected circumferentially around the incision site. Patient went to recovery in good condition. Sponge instrument and needle counts were correct.
--- NOTE | 2023-02-26 09:27 | ANES.PREANE2 ---
Pre-Anesthetic Assessment Height/Weight: Height 1.63 m Weight 87.09 kg Temp Pulse Resp BP Pulse Ox O2 Del Method 98.2 F 54 L 15 132/79 97 Room Air 02/26/23 05:23 02/26/23 05:23 02/26/23 05:23 02/26/23 05:23 02/26/23 05:23 02/26/23 05:23 Preop Diagnosis: desires sterilization Operation Date: 02/26/23 08:00 Proposed Procedures p Post Bilateral Tubal Ligation(Bilateral) - Tonie Mckeon MD Familial anesthetic complications: none Was Beta Shelia taken within 24 hours: N/A Was Clonidine taken within 24 hours: N/A Exam alert and oriented x 3 Airway Submandibular: within normal limits Cervical ROM: within normal limits Mallampati: Class II Comments: Comments: very poor dentition, many rotten, broken teeth Anesthetic Plan ASA status: 2 Anesthesia: Anesthesia Evaluation, General and Regional (specify below) (spinal) Medications/Allergies Home Medications Medication Instructions Recorded Confirmed Last Taken Type hydrocodone 5 mg-acetaminophen 325 1 - 2 tab PO Q6H PRN Moderate To 02/26/23 Unknown Rx mg tablet Severe Pain #10 tabs ibuprofen 800 mg tablet 800 mg PO TID PRN Abdominal 02/26/23 Unknown Rx Discomfort #30 tabs Allergies Allergy/AdvReac Type Severity Reaction Status Date / Time No Known Allergies Allergy Verified 11/13/21 12:17 Current Medications Generic Name Dose Route Start Last Admin Trade Name Freq PRN Reason Stop Dose Admin Hydrocodone Bitart/Acetaminophen 1 - 2 tab 02/24/23 16:54 02/26/23 06:17 Hydrocodone-Acetaminophen 5-325 Mg Tablet PO 2 tab Q6H PRN Administration MODERATE TO SEVERE PAIN Docusate Sodium 100 mg 02/24/23 18:00 02/25/23 09:52 Docusate Sodium 100 Mg Capsule PO Not Given BID JEFFREY Ibuprofen 800 mg 02/24/23 21:00 02/25/23 20:43 Ibuprofen 800 Mg Tablet PO 800 mg TID JEFFREY Administration Multivit/Folic Acid/Iron 1 cap 02/25/23 09:00 02/25/23 09:52 Vitamin Capsule PO 1 cap DAILY JEFFREY Administration PFSH Anesthesia Female Reproductive History : 5 Data Anesthesia 02/25/23 03:50 Short CBC 02/25/23 Range/Units 03:50 WBC 12.1 H (4.0-10.0) 10^3/uL Hgb 11.9 (11.5-15.3) g/dL Hct 34.5 L (37.0-47.0) % MCV 92.0 (81-99) fl Plt Count 191 (130-400) 10^3/cmm Cardiac Studies: No Data to Display
[2023-02-26] MEDS: prenatal vitamin Capsule 1 CAP PO (10:11)
[2023-02-26] MEDS: ibuprofen 800 mg tablet PO (10:11)
[2023-02-26] MEDS: docusate sodium 100 mg Capsule PO (10:11)
--- NOTE | 2023-02-26 10:39 | PC.NURSE ---
Patient walked to OR for tubal procedure at 0755
--- NOTE | 2023-02-26 11:00 | ANE.PACU2 ---
Inpatient post-anesthesia follow up: Airway intact: Yes Vital signs: Temperature 97.9 F Pulse Rate 68 Respiratory Rate 14 Blood Pressure 128/78 Pulse Oximetry 97 Oxygen Delivery Me thod Room Air Oxygen Flow Rate Fraction of Inspir ed Oxygen Hydration adequate: Yes Nausea and vomiting: Yes Pain level: 1 Mental status: Baseline
== END 2023-02-26 12:45 | disposition home or self-care (01) | DRG 798 ==
LOC: OPOB 15:30 → OBGYN 15:30
PROVIDERS: Family Medicine; Admitting Provider Family Medicine; PCP Family Medicine; Visit Provider Family Medicine
PROC: 0UB70ZZ Excision of Bilateral Fallopian Tubes, Open Approach (ICD-10-PCS; CPT 58605; principal; 2023-02-26 08:00)
DX: O42.92 Full-term premature rupture of membranes, unspecified as to length of time between rupture and onset of labor (principal); Z37.0 Single live birth; O69.81X0 Labor and delivery complicated by cord around neck, without compression, not applicable or unspecified; O77.0 Labor and delivery complicated by meconium in amniotic fluid; Z3A.40 40 weeks gestation of pregnancy; O70.0 First degree perineal laceration during delivery; Z30.2 Encounter for sterilization; O48.0 Post-term pregnancy
CPT/HCPCS: 36415; 51702; 59025; 59409; 80306; 83986; 84112; 85025; 85027; 88302; 96374; 96376; J0290; J0690; J2250; J2765; J2795; J3490; J7040; J7120; J7121

== ENCOUNTER 2023-07-13 16:36 | Emergency (ER) | payer MEDICAID, SELFPAY ==
[2023-07-13 17:03] VITALS: BP 170/73; PULSE 104; RESP 18; TEMP 36.4; O2SAT 98; BMI 29.2
--- NOTE | 2023-07-13 17:25 | XRR_ITS ---
PROCEDURE INFORMATION: Exam: XR Left Knee Exam date and time: 07/13/2023 5:52 PM Age: 28 years old Clinical indication: Pain; Knee; Left; Additional info: Knee pain TECHNIQUE: Imaging protocol: Radiologic exam of the left knee. Views: 3 views. COMPARISON: No relevant prior studies available. FINDINGS: Bones/joints: Normal. Soft tissues: Unremarkable. XR/XR knee LT 3V* [id number] IMPRESSION: No acute findings.
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
--- NOTE | 2023-07-14 09:23 | DCPLANNER ---
Message sent to Ortho for a referral for recurrent knee pain.
== END 2023-07-13 18:14 | disposition home or self-care (01) ==
PROVIDERS: Emergency Provider Nurse Practitioner Family; PCP Family Medicine
DX: M23.92 Unspecified internal derangement of left knee (principal)
CPT/HCPCS: 73562; 99283

== ENCOUNTER → 2023-07-19 09:48 | Outpatient (BNVA) | payer MEDICAID, SELFPAY | PROVIDERS: PCP Family Medicine; Referring Provider Nurse Practitioner Family; Visit Provider Nurse Practitioner | DX: M23.52 Chronic instability of knee, left knee; S83.207A Unspecified tear of unspecified meniscus, current injury, left knee, initial encounter; X58.XXXA Exposure to other specified factors, initial encounter | CPT/HCPCS: 73560; 73565 ==

== ENCOUNTER 2023-08-20 07:46 | Outpatient (CLI) | payer MEDICAID, SELFPAY ==
--- NOTE | 2023-08-20 08:00 | MR_ITS ---
WS: [id number] MRI LEFT KNEE NONCONTRAST TECHNIQUE: Axial PD, coronal PD fat sat, coronal PD, sagittal PD, and sagittal PD fat-sat images obta ined. CLINICAL INFORMATION: left knee pain and instability COMPARISON: None. FINDINGS: Distal quadriceps and patella tendons are intact. Normal ACL and PCL. Medial and lateral meniscus are intact. No acute appearing meniscal tears. Medial and lateral patellar retinaculum are intact. Laura l popliteal fossa. Normal medial and lateral collateral ligaments. Normal bone marrow signal. No acut e fractures. Normal fibula head. IMPRESSION: 1. Normal ACL and PCL. 2. No acute appearing meniscal tears. 3. Medial and lateral collateral ligaments are intact. 4. Normal popliteal fossa. Outbridge grading: grade I: focal areas of hyperintensity with normal contour
== END 2023-08-20 07:47 | disposition home or self-care (01) ==
LOC: RAD 07:46
PROVIDERS: PCP Family Medicine; Visit Provider Nurse Practitioner
DX: M23.52 Chronic instability of knee, left knee (principal); R68.89 Other general symptoms and signs; S83.207A Unspecified tear of unspecified meniscus, current injury, left knee, initial encounter; X58.XXXA Exposure to other specified factors, initial encounter
CPT/HCPCS: 73721

== ENCOUNTER 2024-06-16 18:59 | Emergency (ER) | payer MEDICAID, SELFPAY ==
[2024-06-16 19:02] VITALS: BP 114/74; PULSE 74; RESP 16; TEMP 36.7; O2SAT 95; BMI 29.2
--- NOTE | 2024-06-16 21:04 | XRR_ITS ---
PROCEDURE INFORMATION: Exam: XR Right Foot Exam date and time: 06/16/2024 9:07 PM Age: 29 years old Clinical indication: Foot; Right; Patient HX: RT great toe pain; No known injury TECHNIQUE: Imaging protocol: Radiologic exam of the right foot. Views: 3 or more views. COMPARISON: No relevant prior studies available. FINDINGS: Bones/joints: Normal. Soft tissues: Normal. XR/XR foot RT min 3V* [id number] IMPRESSION: No acute findings.
[2024-06-16] MEDS: dexamethasone 10 mg/mL INJ IM (21:26)
--- NOTE | 2024-06-16 21:39 | W.ED.EXTPRO ---
Documented by User: TATI Dumont 06/16/24 22:01 HPI - Extremity Problem General: Chief complaint: Extremity Problem,Nontraumatic Stated complaint: Rt Foot Pain Time Seen by Provider: 06/16/24 20:42 Source: patient Mode of arrival: ambulatory Limitations: no limitations History of Present Illness: Patient is a 29-year-old female who presents to the emergency department complaining of right foot pain over the past couple days. Unable to state what it happened or if there is any injury, states that she just has pain to the tendon of the right first digit of her right foot, worse with ambulation. States there is no reproducible tenderness to palpation, and has not been any swelling or bruising. No previous fractures or surgeries. She has not taken anything for pain. MD Complaint: extremity pain Onset (ago): day(s) Pain Consistency: constant Location: right and lower extremity Quality: other (Cramping) Radiation: proximal Exacerbating factors: weight bearing and walking Associated symptoms: Deny chest pain, fever(s) or rash Related Data Previous Rx's Medication Instructions Recorded diclofenac sodium 75 mg 75 mg PO BID PRN pain #20 tabs 07/13/23 tablet,delayed release tramadol 50 mg tablet 50 mg PO TID PRN pain 7 days #21 07/19/23 tabs Allergies Allergy/AdvReac Type Severity Reaction Status Date / Time No Known Allergies Allergy Verified 08/26/23 09:18 Review of Systems General: Reports: 10 or more systems reviewed and unremarkable except in HPI and below Const: Denies: fever(s) or chills Card: Denies: chest pain Resp: Denies: dyspnea or productive cough GI: Denies: abdominal pain, nausea, vomiting or diarrhea : Denies: flank pain Musc: Reports: extremity pain (Right foot); Denies: neck pain, back pain, extremity swelling, joint pain, joint swelling, joint redness, joint warmth, limited range of motion or muscle weakness Skin/Breast: Denies: rash Neuro: Denies: headache(s), numbness in extremities or weakness in extremities PFS ED PFSH: Medical History Carolyne sign present in left knee Recurrent instability of left knee joint Female Reproductive History: Date of last menstrual period: 06/04/24 Physical Exam Const: COMMON NORMALS: no acute distress, patient oriented x3, no limitations, healthy appearing, alert and well nourished HENMT: COMMON NORMALS: normocephalic and atraumatic HEAD & SCALP: normocephalic and atraumatic Neck/C-Spine: COMMON NORMALS: full ROM, supple and no meningeal signs Resp: COMMON NORMALS: normal respiratory effort, No use of accessory muscles and clear to auscultation bilaterally AUSCULTATION: clear to auscultation bilaterally Cardio: COMMON NORMALS: regular rate and regular rhythm RATE: regular rate RHYTHM: regular rhythm Extremity: COMMON NORMALS: normal to inspection, full ROM, capillary refill normal, no joint enlargement and no clubbing, cyanosis or edema NARRATIVE EXTREMITY EXAM: No reproducible tenderness to palpation to right foot.. No signs of trauma or deformity. No bruising. DP/PT pulses intact. No focal sensory changes. There is some reproducible pain with range of motion of the right first toe, worse with flexion. Neuro: COMMON NORMALS: patient oriented x3, moves all extremities, no focal motor deficits and no sensory deficits noted SENSORIUM/ORIENTATION: Yes alert MENINGEAL SIGNS: Yes no meningeal signs Skin: COMMON NORMALS: no rashes or lesions noted GENERAL SKIN EXAM: no rashes or lesions noted Course Vital Signs: Vital signs: Vital Signs Temperature 98.1 F 06/16/24 19:02 Pulse Rate 71 06/16/24 22:07 Respiratory Rate 16 06/16/24 22:07 Blood Pressure 116/73 06/16/24 22:07 Pulse Oximetry 97 06/16/24 22:07 Oxygen Delivery Me thod Room Air 06/16/24 19:02 MDM - Extremity (Nontraumatic) Medical Decision Making Patient presented with a few days of foot pain, unknown what caused it. She does report quite a bit of relief of pain after the steroid here, and her x-ray was negative. For this, this could be a tendinopathy versus plantar fasciitis versus muscle strain, we will treat conservatively regardless and have her follow-up with primary care if it continues to persist or get worse. She is ready to go home, discussed conservative therapies and all other questions and concerns addressed. Lab Data Radiology Impressions Foot X-Ray 06/16/24 21:04 IMPRESSION: No acute findings. All radiology interpretation(s) finalized by discharge Discharge Plan Discharge Patient Disposition: Home Clinical Impression: Acute pain of right foot Condition: Stable Prescriptions: No Action tramadol 50 mg tablet 50 mg PO TID PRN (Reason: pain) 7 Days Qty: 21 0RF diclofenac sodium 75 mg tablet,delayed release (DR/EC) 75 mg PO BID PRN (Reason: pain) Qty: 20 0RF Discharge Orders: Discharge ED (Routine); Ordered 06/16/24 Ordered By: Victor Hugo Schwab Referrals: Baldemar Schuler MD [Primary Care Provider] - Patient Instructions: Pain Management Activity Restrictions/Additional Instructions: Rest, ice, compression, and elevation. Ibuprofen or Tylenol. Follow-up with primary care and return with any new or worsening. Coding Level of Care Code ED Cad Specialist for Chg Fwd Documented by User: Clarence Lomeli DO 06/17/24 15:46 HPI - Extremity Problem General: Chief complaint: Extremity Problem,Nontraumatic Stated complaint: Rt Foot Pain Time Seen by Provider: 06/16/24 20:42 Related Data Previous Rx's Medication Instructions Recorded diclofenac sodium 75 mg 75 mg PO BID PRN pain #20 tabs 07/13/23 tablet,delayed release tramadol 50 mg tablet 50 mg PO TID PRN pain 7 days #21 07/19/23 tabs Allergies Allergy/AdvReac Type Severity Reaction Status Date / Time No Known Allergies Allergy Verified 08/26/23 09:18 [facility] ED PFSH: Medical History Carolyne sign present in left knee Recurrent instability of left knee joint Course Vital Signs: Vital signs: Vital Signs Temperature 98.1 F 06/16/24 19:02 Pulse Rate 71 06/16/24 22:07 Respiratory Rate 16 06/16/24 22:07 Blood Pressure 116/73 06/16/24 22:07 Pulse Oximetry 97 06/16/24 22:07 Oxygen Delivery Me thod Room Air 06/16/24 19:02 MDM - Extremity (Nontraumatic) Medical Decision Making Patient presented with a few days of foot pain, unknown what caused it. She does report quite a bit of relief of pain after the steroid here, and her x-ray was negative. For this, this could be a tendinopathy versus plantar fasciitis versus muscle strain, we will treat conservatively regardless and have her follow-up with primary care if it continues to persist or get worse. She is ready to go home, discussed conservative therapies and all other questions and concerns addressed. This patient was originally seen by Mr. Josselin PA-C. I agree with his history, evaluation, and treatment. Lab Data Radiology Impressions Foot X-Ray 06/16/24 21:04 IMPRESSION: No acute findings. Discharge Plan Discharge Patient Disposition: Home Clinical Impression: Acute pain of right foot Condition: Stable Prescriptions: No Action tramadol 50 mg tablet 50 mg PO TID PRN (Reason: pain) 7 Days Qty: 21 0RF diclofenac sodium 75 mg tablet,delayed release (DR/EC) 75 mg PO BID PRN (Reason: pain) Qty: 20 0RF Discharge Orders: Discharge ED (Routine); Ordered 06/16/24 Ordered By: Victor Hugo Schwab Referrals: Baldemar Schuler MD [Primary Care Provider] - Patient Instructions: Pain Management Activity Restrictions/Additional Instructions: Rest, ice, compression, and elevation. Ibuprofen or Tylenol. Follow-up with primary care and return with any new or worsening. Coding Level of Care Code ED Cad Specialist for [place]
[2024-06-16 22:07] VITALS: BP 116/73; PULSE 71; RESP 16; O2SAT 97
== END 2024-06-16 22:06 | disposition home or self-care (01) ==
PROVIDERS: Emergency Provider Physician Assistant; PCP Family Medicine
DX: M79.671 Pain in right foot (principal)
CPT/HCPCS: 73630; 96372; 99284; J1100